=== PATIENT | male | born 1955 | race Caucasian/White ===

== ENCOUNTER 2023-11-17 19:21 | Inpatient (IN) | payer OTHER ==
[2023-11-17] MEDS: FAMOTIDINE 20 MG/50 ML IVPB 20 MG/50 ML MG IVPB ONE (20:25)
[2023-11-17 20:48] LABS: BASO % 0.2 % (0-2.0); EOS % 0.2 % (0-4.5); HEMOGLOBIN 14.8 GM/dL (11.7-16.9); LYMPH % 6.5 % (8-40); MCH 33.4 pg (25.7-33.7); MCHC 34.4 g/dl (32.0-35.9); MEAN CELL VOLUME 97.2 fl (80-96); MEAN PLT VOLUME 7.7 fl (7.5-11.1); MONO % 11.2 % (3.8-10.2); NEUT % 81.9 % (42.8-82.8); PLATELET COUNT 314 10^3/uL (134-434); RBC 4.42 M/mm3 (4.00-5.60); RDW 13.1 % (11.9-15.9); WHITE BLOOD COUNT 15.8 K/mm3 (4.0-10.0)
[2023-11-17] MEDS ORDERED: METHOCARBAMOL 500 MG TABLET ONE (20:49)
[2023-11-17] MEDS: METHOCARBAMOL 500 MG TABLET PO ONE (20:52)
[2023-11-17] MEDS ORDERED: ONDANSETRON 4 MG/2 ML VIAL ONE (20:54)
[2023-11-17] MEDS: ONDANSETRON 4 MG/2 ML VIAL IVPUSH ONE (20:59)
[2023-11-17] MEDS ORDERED: LIDOCAINE 4% PATCH TP ONE (21:01)
[2023-11-17] MEDS: LIDOCAINE 4% PATCH TP ONE (21:05)
[2023-11-17 21:08] LABS: POTASSIUM 4.7 mmol/L (3.5-5.1)
[2023-11-17 21:11] LABS: ALBUMIN 3.1 g/dl (3.4-5.0); BLOOD UREA NITROGEN 29.7 mg/dL (7-18); CALCIUM 8.8 mg/dL (8.5-10.1); MAGNESIUM 2.4 mg/dL (1.8-2.4)
[2023-11-17 21:14] LABS: CREATININE 1.2 mg/dL (0.55-1.3); PHOSPHOROUS 3.2 mg/dL (2.5-4.9)
[2023-11-17 21:16] LABS: TOT PROT 6.9 g/dl (6.4-8.2)
[2023-11-17] MEDS ORDERED: MORPHINE SULFATE 2 MG/ML SYRINGE ONE (21:21)
[2023-11-17] MEDS: morphine CARPU-JECT 2 MG/1 ML DISP.SYRIN IVPUSH ONE (21:27)
[2023-11-17] MEDS: LIDOCAINE PATCH REMOVAL MC SCH (21:30)
[2023-11-17] MEDS: SODIUM CHLORIDE 0.9% 500 ML INFUS.BAG IV ONE (22:23)
[2023-11-17] MEDS ORDERED: CEFTRIAXONE 1 GM/50 ML BAG ONE (22:26)
[2023-11-17] MEDS ORDERED: DOXYCYCLINE HYCLATE 100 MG VIAL ONE (22:47)
[2023-11-17] MEDS: CEFTRIAXONE 1,000 MG in DEXTROSE 5%-WATER - 50 ML IVPB ONE (22:49)
[2023-11-17] MEDS: DOXYCYCLINE INJECTION 100 MG in DEXTROSE 5%-WATER 100 ML IVPB ONE (23:03)
[2023-11-17] MEDS ORDERED: ACETAMINOPHEN 500 MG TABLET (FP) ONE (23:03)
[2023-11-17] MEDS: ACETAMINOPHEN 500 MG TABLET (FP) PO ONE (23:07)
[2023-11-17 23:47] LABS: EPI CELLS 6 /uL (0-25.1); HYALINE CASTS 2 /uL (0-3.1); PH,URINE 5.5 (5.0-8.0); URINE APPEARANCE CLEAR; URINE BACTERIA 0 /uL (0-1359); URINE BILIRUBIN NEGATIVE (NEGATIVE); URINE COLOR YELLOW; URINE GLUCOSE (UA) NEGATIVE (NEGATIVE); URINE KETONE 1+ (NEGATIVE); URINE LEUK ESTERASE NEGATIVE (NEGATIVE); URINE NITRITE NEGATIVE (NEGATIVE); URINE PROTEIN 2+ (NEGATIVE); URINE RBC 31 /uL (0-23.9); URINE WBC 13 /uL (0-25.8)
[2023-11-18] MEDS: SODIUM CHLORIDE 1,000 ML IV STA (00:49)
[2023-11-18 03:23] LABS: POTASSIUM 3.5 mmol/L (3.5-5.1)
[2023-11-18 03:24] LABS: CALCIUM 7.5 mg/dL (8.5-10.1)
[2023-11-18 03:25] LABS: ALBUMIN 2.6 g/dl (3.4-5.0)
[2023-11-18 03:29] LABS: BILIRUBIN,TOTAL 0.6 mg/dL (0.2-1)
[2023-11-18 03:30] LABS: TOT PROT 5.8 g/dl (6.4-8.2)
[2023-11-18 04:11] VITALS: BMI 22.8
[2023-11-18] MEDS: CEFTRIAXONE 1 GM in DEXTROSE 5%-WATER - 50 ML IVPB SCH (10:23)
[2023-11-18] MEDS: ENOXAPARIN NA (PORCINE) 40 MG/0.4 ML DISP.SYRIN SQ SCH (10:23)
[2023-11-18] MEDS: metoPROLOL SUCCINATE 25 MG TAB.SR.24H (FP) PO SCH (10:24)
[2023-11-18] MEDS: AZITHROMYCIN IVPB 500 MG/250 ML BAG IVPB SCH (10:24)
[2023-11-18] MEDS: amLODIPine BESYLATE 10 MG TABLET (FP) PO SCH (10:24)
[2023-11-18 11:41] LABS: HEPATITIS B SURFACE AG MATERN NON-REACTIVE (NONREACTIVE)
[2023-11-18] MEDS: LIDOCAINE 4% PATCH TP SCH (11:58)
[2023-11-18] MEDS: ACETAMINOPHEN 500 MG TABLET (FP) PO PRN (11:58)
[2023-11-18 12:01] LABS: BASO % 0.2 % (0-2.0); EOS % 2.4 % (0-4.5); HEMATOCRIT 40.2 % (35.4-49); HEMOGLOBIN 13.8 GM/dL (11.7-16.9); LYMPH % 12.2 % (8-40); MCH 33.8 pg (25.7-33.7); MCHC 34.3 g/dl (32.0-35.9); MEAN CELL VOLUME 98.6 fl (80-96); MEAN PLT VOLUME 8.1 fl (7.5-11.1); MONO % 15.8 % (3.8-10.2); NEUT % 69.4 % (42.8-82.8); PLATELET COUNT 344 10^3/uL (134-434); RBC 4.07 M/mm3 (4.00-5.60); RDW 13.4 % (11.9-15.9); WHITE BLOOD COUNT 11.9 K/mm3 (4.0-10.0)
[2023-11-18 12:30] LABS: CALCIUM 8.6 mg/dL (8.5-10.1)
[2023-11-18 12:33] LABS: ALBUMIN 2.9 g/dl (3.4-5.0); BLOOD UREA NITROGEN 21.6 mg/dL (7-18)
[2023-11-18 12:38] LABS: BILIRUBIN,TOTAL 0.8 mg/dL (0.2-1); TOT PROT 6.4 g/dl (6.4-8.2)
[2023-11-18 13:53] VITALS: RESP 18
[2023-11-18] MEDS: SODIUM CHLORIDE 1,000 ML IV SCH (16:51)
[2023-11-18] MEDS: LIDOCAINE PATCH REMOVAL MC SCH (22:45)
[2023-11-19 08:54] LABS: BASO % 0.3 % (0-2.0); EOS % 3.3 % (0-4.5); HEMATOCRIT 36.5 % (35.4-49); HEMOGLOBIN 12.3 GM/dL (11.7-16.9); LYMPH % 14.1 % (8-40); MCH 33.2 pg (25.7-33.7); MCHC 33.6 g/dl (32.0-35.9); MEAN CELL VOLUME 98.8 fl (80-96); MONO % 12.6 % (3.8-10.2); NEUT % 69.7 % (42.8-82.8); PLATELET COUNT 350 10^3/uL (134-434); RBC 3.69 M/mm3 (4.00-5.60); RDW 12.9 % (11.9-15.9); WHITE BLOOD COUNT 9.2 K/mm3 (4.0-10.0)
[2023-11-19 09:26] LABS: ALBUMIN 2.5 g/dl (3.4-5.0)
[2023-11-19 09:28] LABS: BLOOD UREA NITROGEN 16.6 mg/dL (7-18)
[2023-11-19 09:31] LABS: BILIRUBIN,TOTAL 0.5 mg/dL (0.2-1); CREATININE 0.8 mg/dL (0.55-1.3); TOT PROT 5.5 g/dl (6.4-8.2)
[2023-11-19 17:34] VITALS: BP 136/71; PULSE 87; TEMP 98.8
== END 2023-11-19 17:46 | disposition home or self-care (01) | DRG 194 ==
LOC: JER 19:21 → JERBED 22:54 → J4S 11-18 01:14 → OBSVTOIN 11-18 12:11
PROVIDERS: ADMIT Internal Medicine; ATTEND Family Medicine
DX: J18.9 Pneumonia, unspecified organism (principal); E87.1 Hypo-osmolality and hyponatremia; R91.8 Other nonspecific abnormal finding of lung field; M06.9 Rheumatoid arthritis, unspecified; I48.91 Unspecified atrial fibrillation
CPT/HCPCS: 0241U-QW; 36415; 71045-TC-FY; 71250-TC; 72131-TC; 74177-TC; 76705-TC; 80053; 81003; 82378; 82533; 83615; 83735; 83930; 83935; 84100; 84300; 84443; 84484; 85025; 86308; 86704; 86708; 86713; 86803; 87040; 87340; 87517; 87899; 93005; 93010; 93306-TC; 99285-25; G0378; Q9967